=== PATIENT | male | born 1940 | race Caucasian/White ===

== ENCOUNTER 2024-11-27 15:42 | Emergency (ER) | payer OTHER, SELFPAY ==
[2024-11-27 15:47] VITALS: BP 163/87; PULSE 94; RESP 20; TEMP 36.2; O2SAT 97
--- NOTE | 2024-11-27 16:01 | ED.GENADUL_ITS ---
Discharge Plan Disposition Patient Disposition: Home Condition: Stable Discharge Details Clinical Impression: Cellulitis, Superficial fungal infection of skin Primary Care Provider: Caroline Dove ED Provider: Otis Caba Home Meds and New Rx's Prescriptions: New cephalexin 500 mg capsule 500 mg PO QID 14 Days Qty: 56 0RF No Action tramadol 50 MG tablet 50 mg PO TID gabapentin [Neurontin] 300 MG capsule 300 mg PO TID celecoxib [Celebrex] 100 mg capsule 100 mg PO DAILY Discharge Instructions Instructions: Cephalexin, Cellulitis (Skin Infection), Adult ED Additional Instructions: You were seen in the emergency department for your fungal infection to your buttocks that has likely exacerbated into bacterial infection as well. I have prescribed you cephalexin for antibiotics, you need to keep applying Lotrimin or Lamisil and or any other [id number]-[id number] antifungal cream to the area, please seek a referral to wound care from your primary care provider, take the antibiotics as directed, take Tylenol and ibuprofen for pain as needed, keep the area clean and dry. Return for any worsening despite treatment, large fluctuant swellings, fevers, weakness or nausea. Referrals: Caroline Dove [Primary Care Provider] - Discharge Data Discharge Date/Time-TO BE ENTERED AT DEPARTURE: 11/27/24 16:39 HPI General Date/Time Provider Initiated Documentation: 11/27/24 15:44 . HPI Narrative: 84 year-old male presents to ED today by POV/ambulating with a chief complaint of rash to buttock areas, with some fluctuant swellings that he has expressed some pus out of with onset over the past week or so. Quality described as painful rash, itchy, no radiation to constipation, large fluctuant swelling, red streaking outward from area, fevers, nausea, weakness. Severity is described as moderate. Palliating factors include has been trying antifungal creams. Provoking factors include nothing specific. Patient not anticoagulated. Related Data Home Medications ?Medication ?Instructions ?Recorded ?Confirmed gabapentin 300 mg capsule 300 mg PO TID 06/30/17 11/27/24 (Neurontin) tramadol 50 mg tablet 50 mg PO TID 06/30/17 11/27/24 celecoxib 100 mg capsule (Celebrex) 100 mg PO DAILY 11/27/24 11/27/24 cephalexin 500 mg capsule 500 mg PO QID cellulitis 14 days 11/27/24 #56 caps Previous Rx's ?Medication ?Instructions ?Recorded cephalexin 500 mg capsule 500 mg PO QID cellulitis 14 days 11/27/24 #56 caps Allergies Allergy/AdvReac Type Severity Reaction Status Date / Time No Known Allergies Allergy Verified 11/27/24 15:45 General Stated Complaint: RashLesion ELADIA: 4 Review of Systems All systems reviewed & are unremarkable except as noted in HPI and below Exam Narrative Exam Narrative: GENERAL APPEARANCE: Well-nourished, non-toxic, awake and alert, atraumatic, no acute distress. SKIN: Warm, pink, dry, diffuse erythema to the gluteal cleft and half of each buttock, macular, no fluctuant swellings or abscesses, no active drainage, some excoriated open abrasive areas, likely superficial fungal infection with imposed cellulitis due to excoriation by the patient HEAD: Normocephalic, atraumatic, normal hair distribution for gender/age. EYES: Normal conjunctiva, no exudates on lids/lashes. ENT: Nares patent, no circumoral cyanosis, no facial swelling NECK: Supple, trachea midline, painless cervical ROM. LUNGS/CHEST: Non-labored respirations, normal A/P diameter, symmetrical expansion, no chest wall deformity HEART (CV/PV): No peripheral edema, no JVD. ABDOMEN: Soft, non-distended, no guarding. MSK: Normal ROM, no swelling/deformity to bilateral UEs or LEs, moving all extremities without weakness, no cyanosis, spine midline without tenderness, normal curvature. NEURO: Mental Status AAOx4 - alert to person, place, time, events No facial droop, no forehead involvement. Motor: No focal weakness - strength 5/5 in bilateral UEs and LEs, proximal and distal, symmetric. Sensory: sensation intact to light touch globally. Gait normal: patient ambulated without ataxia into ED room. PSYCH: euthymic, cooperative, pleasant, appropriate speech Course Vital Signs Vital signs: Vital Signs Temperature 36.2 C L 11/27/24 15:47 Pulse 94 H 11/27/24 15:47 Respiratory Rate 20 11/27/24 15:47 Blood Pressure 163/87 H 11/27/24 15:47 Pulse Oximetry 97 11/27/24 15:47 Temperature 36.2 C L 11/27/24 15:47 Temperature Source Tympanic 11/27/24 15:47 Pulse 94 H 11/27/24 15:47 Respiratory Rate 20 11/27/24 15:47 Blood Pressure 163/87 H 11/27/24 15:47 Blood Pressure Position Supine 11/27/24 15:47 Pulse Oximetry 97 11/27/24 15:47 Oxygen Delivery Method Room Air 11/27/24 15:47 Oxygen Flow Rate 0 11/27/24 15:47 Medical Decision Making This dictation utilizes [id number]-[id number] dictation software and may contain unedited grammatical errors. 84 year-old male presents to ED today by POV/ambulating with a chief complaint of rash to buttock areas, with some fluctuant swellings that he has expressed some pus out of with onset over the past week or so. Quality described as painful rash, itchy, no radiation to constipation, large fluctuant swelling, red streaking outward from area, fevers, nausea, weakness. Severity is described as moderate. Palliating factors include has been trying antifungal creams. Provoking factors include nothing specific. Patients' medical history: No records. Family and social history: Lives at home with his , no recent travel or sick contacts. Pertinent exam findings / vital signs include large macular erythematous area with various excoriations, no fluctuant swellings or active drainage, no pilonidal cyst, appears to be not perirectal/anal abscess-consistent with cellulitis with underlying superficial fungal infection. Differential / pathologies of concern include superficial fungal infection, abscess, cellulitis, unlikely sepsis. Diagnostic studies of: -Discussed possibility of labs- patient prefers trial of ABX and will return with low threshold. Interventions of: -Rx for cephalexin. ED Course/Assessment/Plan: 84-year-old male presents with a large superficial fungal infection on his buttock with likely superimposed cellulitis from excoriation, no evidence for abscess on exam, is overall stable vitals and nontoxic and afebrile with no evidence of sepsis, I did discuss laboratory workup and possible imaging with the patient but he prefers a trial of antibiotics prior, I did prescribe him cephalexin, [facility] with seeking a referral to wound care for these issues, I did recommend he use barrier ointment and superficial fungal creams, strict return criteria for any worsening despite treatment especially with fever. Findings not consistent with perianal or rectal abscess, sepsis, pilonidal cyst. Disposition of Cellulitis, Superficial Fungal Infection. Patient verbalized understanding of the plan and return to ED criteria and engaged in shared decision making. Medical Records Medical records reviewed: Yes I reviewed the patient's medical records. Quality:SDOH Health Related Social Needs: No Data to Display PFSH All Active Problems (Updated 11/27/24 @ 16:02 by VASQUEZ Aragon) Superficial fungal infection of skin (Acute) Cellulitis (Acute) Social History Smoking/Tobacco Use Status: Never Smoking risk assessment performed?: Yes Alcohol Intake: never Drug use: Never Do you feel safe in your relationship?: Yes
[2024-11-27] MEDS: Cephalexin 500 MG CAP PO (16:29)
[2024-11-27] MEDS: Cephalexin 500 MG CAP, 2 CAPS/BTL PO (16:30)
[2024-11-27 16:31] VITALS: PULSE 87; RESP 16; O2SAT 96
== END 2024-11-27 16:39 | disposition home or self-care (01) ==
LOC: ER 16:43
PROVIDERS: Emergency Provider Physician Assistant; PCP Internal Medicine
DX: L03.317 Cellulitis of buttock (principal); B36.9 Superficial mycosis, unspecified
CPT/HCPCS: 99283

== ENCOUNTER 2025-02-06 22:56 | Observation (INO) | payer OTHER, SELFPAY ==
[2025-02-06] VITALS (11 sets, daily range): BP systolic 159–180; BP diastolic 70–79; PULSE 63–71; RESP 15–16; TEMP 35.9; O2SAT 94–98
--- NOTE | 2025-02-06 22:45 | RT.EKG_ITS ---
APPROVED REPORT Exam: Resting ECG Reason for Exam: stroke Patient Location: E HR:66 bpm ECG Measurements Heart Rate 66 AXIS MO 157 P 43 QRSd 99 QRS -16 QT 415 T 67 QTc 435 Conclusion Sinus rhythm...normal P axis, V-rate 60- 99, scattered non-specific t-wave flattening, no overt kraig gato injury ischemia present
--- NOTE | 2025-02-06 23:00 | DI.CT_ITS ---
Exam(s) CT BRAIN NECK CTA EXAM: CT BRAIN NECK CTA CLINICAL HISTORY: TIA symptoms. TECHNIQUE: Imaging Protocol: Axial CT angiography was performed with multi-slice acquisition and mu lti-planar and/or 3D reconstructions. CONTRAST MATERIAL: Intravenous: Omnipaque 350 contrast volume:70 mL COMPARISON: No exams were available for comparison FINDINGS: CT Head W/O and W: Ventricles and Extra axial spaces: Normal in size and morphology for the patient's age. Hemorrhage: None. Cerebral parenchyma: There are areas of decreased attenuation in the white matter most consistent wit h small vessel ischemic disease. No evidence of an acute territorial infarct. No mass effect is robin ntified. Old lacunar infarcts are seen in the left basal ganglia. Midline shift: None. Brainstem/Cerebellum: Normal. Calvarium: Normal. Visualized Paranasal sinuses/Mastoids: Clear. Soft Tissues: Unremarkable. Enhancement: Unremarkable. CTA Neck W: Common Carotid: Right: No dissection or occlusion. Atherosclerotic calcification is seen in the carotid bulb with l ess than 50 percent stenosis. Left: No dissection, occlusion or significant stenosis. External Carotid: Right: No occlusion or significant stenosis. Atherosclerotic calcification is seen at the origin wit h approximately 50 percent stenosis. Left: No occlusion or significant stenosis. Internal Carotid: Right: No dissection, occlusion or significant stenosis. There is atherosclerotic calcifications see n proximally with less than 50 percent stenosis. Left: No dissection, occlusion or significant stenosis. Atherosclerotic calcification is seen proxim ally with less than 50 percent stenosis. Vertebral Artery: Right: No dissection, occlusion or significant stenosis. Atherosclerotic calcification is seen at th e origin with less than 50 percent stenosis. Left: No dissection, occlusion or significant stenosis. Lung Apices: Clear. No infiltrates are seen. Bones: Within normal limits for the patient's age. Soft Tissues: Normal. Thyroid gland: There is a tiny 4 mm nodule in the right lobe of the thyroid gland. No follow-up is r ecommended. CTA Brain W: Internal Carotid Arteries: Normal. Anterior Cerebral Arteries: Right: No aneurysm, occlusion or significant stenosis. Left: No aneurysm, occlusion or significant stenosis. Middle Cerebral Arteries: Right: No aneurysm, occlusion or significant stenosis. Left: No aneurysm, occlusion or significant stenosis. Posterior Cerebral Arteries: Right: No aneurysm, occlusion or significant stenosis. The right posterior cerebral artery arises fr om the right posterior communicating artery which is normal variant. Left: No aneurysm, occlusion or significant stenosis. Vertebral Arteries: Right: No aneurysm, occlusion or significant stenosis. Left: No aneurysm, occlusion or significant stenosis. Basilar Artery: No aneurysm, occlusion or significant stenosis. IMPRESSION: 1. No large vessel occlusion or significant stenosis on the CT angiography of the head. 2. No acute intracranial process. 3. No occlusion or significant stenosis on the CT angiography of the neck. 4. The preliminary [facility] report was reviewed. RADIATION DOSE DELIVERED: 2,338.75mGy.cm Total DLP DATA REPOSITORY: All CT scans at this facility are submitted to the National Radiology Data Registry (NRDR) Dose Index Registry (DIR) with the [employer] (ACR). RADIATION OPTIMIZATION: All CT scans at this facility use at least one of these dose optimization te chniques: automated exposure control; mA and/or kV adjustment per patient size (includes targeted exa ms where dose is matched to clinical indication); or iterative reconstruction.
[2025-02-06 23:14] LABS: Abs Immature Grans 0.03 10^3/uL (0.0-0.06); Absolute Basophil Count 0.06 10^3/uL (0.0-0.2); Absolute Eosinophil Count 0.07 10^3/uL (0.0-0.7); Absolute Lymphocyte Count 1.44 10^3/uL (1.2-3.4); Absolute Monocyte Count 0.59 10^3/uL (0.1-0.8); Absolute Neutrophil Count 6.09 10^3/uL (1.2-6.7); Basophils % 0.7 %; Eosinophils % 0.8 %; HCT 43.9 % (40.0-50.0); HGB 14.3 g/dL (13.5-17.5); Immature Grans % 0.4 %; Lymphocytes % 17.4 %; MCHC 32.6 % (32.0-36.0); MCV 92 fL (80-95); MPV 9.7 fL (8.0-11.0); Monocytes % 7.1 %; Neutrophils % 73.6 %; Platelet Count 235 10^3/uL (130-400); RBC 4.76 10^6/uL (4.36-5.78); RDW 12.5 % (11.8-14.1); RDW-SD 42.5 fL; WBC 8.28 10^3/uL (4.4-10.8)
[2025-02-06] MEDS: Normal Saline - Diluent 50 ML VIAL IJ (23:20)
[2025-02-06] MEDS: Omnipaque 350 MG/ML 100 ML BTL 70 ML IJ (23:20)
[2025-02-06 23:32] LABS: ALT 23 U/L (16-63); AST 22 U/L (15-37); Albumin 3.6 g/dL (3.4-5.0); Alkaline Phosphatase 60 U/L (46-116); Anion Gap 6.3 mmol/L (3-11); BUN 23 mg/dL (7-18); Bilirubin, Total 0.8 mg/dL (0.2-1.0); CO2 28.7 mmol/L (21.0-32.0); CREATININE 1.4 mg/dL (0.70-1.30); Calcium 9.7 mg/dL (8.5-10.1); Chloride 104 mmol/L (98-107); Estimated GFR 50.18 (mL/min/1.73m2); Glucose 123 mg/dL (74-106); Magnesium 2.1 mg/dL (1.8-2.4); Sodium 139 mmol/L (136-145); Total Protein 7.3 g/dL (6.4-8.2); Troponin I 9 ng/L (<or=76)
[2025-02-07] VITALS (20 sets, daily range): BP systolic 123–176; BP diastolic 65–93; PULSE 61–75; RESP 13–20; TEMP 35.9–36.6; O2SAT 94–99
--- NOTE | 2025-02-07 | DI.MRI_ITS ---
Exam(s) MR BRAIN WO EXAM: MR BRAIN WO CLINICAL HISTORY: TIA TECHNIQUE: Multiplanar multisequence MRI of the brain was performed. COMPARISON: CT CT BRAIN NECK CTA from 02/06/2025 FINDINGS: The examination is limited due to patient motion artifact. VENTRICLES AND EXTRA AXIAL SPACES: Normal in size and morphology for the patient's age. MIDLINE SHIFT: None. CEREBRAL PARENCHYMA: No focus of restricted diffusion to suggest acute infarct. No space-occupying le cecile identified. There are several areas of hyperintense signal seen in the white matter on the FLAIR and T2 weighted images consistent with chronic microvascular ischemic disease. There is an old lacu kelvin infarct in the left basal ganglia. HEMORRHAGE: None. BRAINSTEM/CEREBELLUM: Normal. CALVARIUM: Normal. VISUALIZED PARANASAL SINUSES/MASTOIDS:Clear. [place]: Normal flow void. PITUITARY GLAND: Unremarkable. OTHER FINDINGS: None. IMPRESSION: 1. Exam limited by patient motion artifact. 2. No evidence of an acute infarct. 3. Age-related cerebral atrophy and chronic microvascular ischemic disease. 4. 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 DATA REPOSITORY:
--- NOTE | 2025-02-07 00:02 | DI.[facility]_ITS ---
PROCEDURE INFORMATION: Exam: CTA Head Without And With Contrast, Arteriography Exam date and time: 02/06/2025 11:27 PM Age: 84 years old Clinical indication: Stroke-like symptoms; Other: TIA symptoms TECHNIQUE: Imaging protocol: Computed tomographic angiography of the head without and with contrast. Exam focused on the arteries. 3D rendering (Not supervised by radiologist): MIP and/or 3D reconstructed images were created by the technologist. Contrast material: OMNIPAQUE 350; Contrast volume: 70 ml; Contrast route: INTRAVENOUS (IV); Other technique: STROKE PROTOCOL was implemented. COMPARISON: No relevant prior studies available. FINDINGS: ANTERIOR CIRCULATION: Right internal carotid artery: Intracranial segment is patent with no significant stenosis or occlusion. No aneurysm. Right middle cerebral artery: No occlusion or significant stenosis. No aneurysm. Right anterior cerebral artery: No occlusion or significant stenosis. No aneurysm. Left internal carotid artery: Intracranial segment is patent with no significant stenosis. No aneurysm. Left middle cerebral artery: No occlusion or significant stenosis. No aneurysm. Left anterior cerebral artery: No occlusion or significant stenosis. No aneurysm. POSTERIOR CIRCULATION: Right vertebral artery: No occlusion or significant stenosis. No aneurysm. Left vertebral artery: No occlusion or significant stenosis. No aneurysm. Basilar artery: No occlusion or significant stenosis. No aneurysm. Right posterior cerebral artery: No occlusion or significant stenosis. No aneurysm. Left posterior cerebral artery: No occlusion or significant stenosis. No aneurysm. HEAD: Brain: Small chronic left basal ganglia lacunar infarct. Mild nonspecific hypodensities of the periventricular and deep subcortical white matter, most likely secondary to chronic microangiopathic ischemic change. No intracranial hemorrhage or extra-axial fluid collection. No evidence of mass effect or midline shift. Tanner-white matter differentiation is normal. Cerebral ventricles: Mild prominence of the ventricles and sulci, most likely attributed to parenchymal volume loss. Bones: Unremarkable. No acute fracture. Paranasal sinuses: Visualized sinuses are normal. No fluid levels. Mastoid air cells: Visualized mastoids are normal. No mastoid effusion. Soft tissues: Unremarkable. IMPRESSION: 1. No intracranial arterial occlusion or significant stenosis. 2. No acute findings on non-contrast Head CT images. ASPECTS score 10. 3. Chronic findings, as above. PROCEDURE INFORMATION: Exam: CTA Neck Without And With Contrast Exam date and time: 02/06/2025 11:27 PM Age: 84 years old Clinical indication: Stroke-like symptoms; Other: TIA symptoms TECHNIQUE: Imaging protocol: Computed tomographic angiography of the neck without and with contrast. Exam focused on the cervical segments of the vasculature. 3D rendering (Not supervised by radiologist): MIP and/or 3D reconstructed images were created by the technologist. Contrast material: OMNIPAQUE 350; Contrast volume: 70 ml; Contrast route: INTRAVENOUS (IV); COMPARISON: No relevant prior studies available. FINDINGS: Right common carotid artery: No significant stenosis. No dissection or occlusion. Right internal carotid artery: Atherosclerotic plaques involving the proximal extracranial right internal carotid artery without evidence of hemodynamically significant stenosis (0% stenosis by NASCET criteria). Right external carotid artery: No occlusion or significant stenosis. Left common carotid artery: No significant stenosis. No dissection or occlusion. Left internal carotid artery: Atherosclerotic plaques within the proximal extracranial left internal carotid artery cause approximately 30 % stenosis by NASCET criteria. Remaining portions of the extracranial left ICA are patent. Left external carotid artery: No occlusion or significant stenosis. Right vertebral artery: No significant stenosis. No dissection or occlusion. Left vertebral artery: No significant stenosis. No dissection or occlusion. Soft tissues: Unremarkable. Bones/joints: No acute fracture. IMPRESSION: No occlusion or significant stenosis in the arteries of the neck. REFERENCES: NASCET CRITERIA. The degree of stenosis in the cervical segment of the internal carotid artery is based on NASCET criteria. Normal is no stenosis. Mild is less than 50% stenosis. Moderate is 50-69% stenosis. Severe is 70% to 99% stenosis. Total occlusion is no detectable patent lumen. Dictated and Authenticated by: Max Simpson MD. Orderin Kaela Haskins MD
[2025-02-07 00:25] LABS: Troponin I 8 ng/L (<or=76)
--- NOTE | 2025-02-07 00:59 | W.ED.GENAD ---
Discharge Plan Disposition Patient Disposition: Admit to [facility] Condition: Stable Discharge Details Clinical Impression: TIA (transient ischemic attack) Primary Care Provider: Caroline Dove ED Provider: Jozef Sherwood Home Meds and New Rx's Prescriptions: No Action tramadol 50 MG tablet 50 mg PO TID gabapentin [Neurontin] 300 MG capsule 300 mg PO TID tamsulosin [Flomax] 0.4 mg capsule 0.4 mg PO DAILY celecoxib [Celebrex] 100 mg capsule 100 mg PO DAILY HPI General Date/Time Provider Initiated Documentation: 02/06/25 23:04. HPI Narrative: The patient is an 84-year-old male, with a past medical history significant for chronic pain and urinary retention, who presents to the emergency department this evening complaining of possible stroke-like symptoms that began approximately 4 hours prior to arrival by ambulance, and resolved within about 20 minutes of the onset. The patient states that he had some slurred speech and some difficulty moving the right side of his face. He also reported that he had some mild numbness in his distal right forearm. The patient states that the symptoms lasted about 20 minutes and then spontaneously resolved on their own. He called an ambulance at his 's urging several hours later. The patient denies having any headache, chest pain, shortness of breath, or recent illnesses. The patient denies any fevers or chills. Related Data Home Medications ?Medication ?Instructions ?Recorded ?Confirmed gabapentin 300 mg capsule 300 mg PO TID 06/30/17 02/06/25 (Neurontin) tramadol 50 mg tablet 50 mg PO TID 06/30/17 02/06/25 celecoxib 100 mg capsule (Celebrex) 100 mg PO DAILY 11/27/24 02/06/25 tamsulosin 0.4 mg capsule (Flomax) 0.4 mg PO DAILY 02/06/25 02/06/25 Allergies Allergy/AdvReac Type Severity Reaction Status Date / Time No Known Allergies Allergy Verified 02/06/25 23:00 General Stated Complaint: CVA/TIA ELADIA: 2 Exam Const General: cooperative, comfortable and no acute distress Orientation: alert, awake and oriented x3 HENMT Head: normocephalic and atraumatic Ears: external ears normal General nose exam: external nose normal and no nasal discharge noted Face and sinus: sinuses nontender and face symmetric Teeth and gingiva: edentulous Eyes General: appearance normal, both eyes and all related structures Visual Erickson: normal visual erickson by confrontation Alignment and Position: alignment normal Conjunctivae: conjunctivae normal Cornea: corneas normal Pupils: PERRL EOM: EOM intact bilaterally Neck Neck: normal visual inspection and full ROM Resp Effort & Inspection: normal respiratory effort and able to speak in complete sentences Auscultation: clear to auscultation bilaterally Cardio Rate: regular rate Rhythm: regular rhythm Heart Sounds: S1 normal and S2 normal GI Inspection: normal to inspection Palpation: soft Auscultation: normal bowel sounds Skin General skin exam: no rashes or lesions noted, elasticity normal and turgor normal Neuro General: patient alert, patient awake, patient oriented x3, moves all extremities, normal light touch, pain and propioception, no focal motor deficits and CN's II-XI intact bilaterally Cognition: normal cognition Speech: speech normal Motor: muscle tone normal throughout, strength 5/5 throughout and no pronator drift Extrem General: normal to inspection, full ROM, no clubbing, no cyanosis and no edema Psych Appearance: grossly normal Mental Status: mental status grossly normal Speech and Movement: speech and movement normal Course Vital Signs Vital signs: Vital Signs Temperature 35.9 C L 02/06/25 22:55 Pulse 71 02/06/25 22:55 Respiratory Rate 15 02/06/25 22:55 Blood Pressure 163/70 H 02/06/25 22:55 Temperature 35.9 C L 02/06/25 22:55 Pulse 67 02/07/25 00:30 Pulse 68 02/07/25 00:30 Respiratory Rate 19 02/07/25 00:30 Respiratory Effort Normal, Non-Labored 02/06/25 23:10 Respiratory Depth Normal 02/06/25 23:10 Respiratory Pattern Normal 02/06/25 23:10 Blood Pressure 143/77 H 02/07/25 00:21 Blood Pressure Mean 100 02/07/25 00:21 Pulse Oximetry 97 02/07/25 00:30 Oxygen Delivery Method Room Air 02/06/25 22:55 Oxygen Flow Rate 0 02/06/25 22:55 Pain Level 0 02/06/25 22:55 Lab/Test Results Lab/Test Results: Laboratory Tests Range/Units 02/06/25 02/07/25 23:05 00:02 WBC (4.4-10.8) 10^3/uL 8.28 RBC (4.36-5.78) 10^6/uL 4.76 Hgb (13.5-17.5) g/dL 14.3 Hct (40.0-50.0) % 43.9 MCV (80-95) fL 92 MCH (27.0-33.0) pg 30.0 MCHC (32.0-36.0) % 32.6 RDW (11.8-14.1) % 12.5 Plt Count (130-400) 10^3/uL 235 MPV (8.0-11.0) fL 9.7 Immature Gran % % 0.4 Neutrophils % % 73.6 Lymphocytes % % 17.4 Monocytes % % 7.1 Eosinophils % % 0.8 Basophils % % 0.7 Nucleated RBC % (0.0-0.3) % 0.0 Absolute Neutrophils (1.2-6.7) 10^3/uL 6.09 Absolute Lymphocytes (1.2-3.4) 10^3/uL 1.44 Absolute Monocytes (0.1-0.8) 10^3/uL 0.59 Absolute Eosinophils (0.0-0.7) 10^3/uL 0.07 Absolute Basophils (0.0-0.2) 10^3/uL 0.06 Sodium (136-145) mmol/L 139 Potassium (3.5-5.1) mmol/L 4.0 Chloride (98-107) mmol/L 104 Carbon Dioxide (21.0-32.0) mmol/L 28.7 Anion Gap (3-11) mmol/L 6.3 BUN (7-18) mg/dL 23 H Creatinine (0.70-1.30) mg/dL 1.4 H Est GFR (CKD-EPI 2020) (mL/min/1.73m2) 50.18 Glucose (74-106) mg/dL 123 H Calcium (8.5-10.1) mg/dL 9.7 Magnesium (1.8-2.4) mg/dL 2.1 Total Bilirubin (0.2-1.0) mg/dL 0.8 AST (15-37) U/L 22 ALT (16-63) U/L 23 Alkaline Phosphatase (46-116) U/L 60 Troponin I (<or=76) ng/L 9 8 Total Protein (6.4-8.2) g/dL 7.3 Albumin (3.4-5.0) g/dL 3.6 Medical Decision Making Medical Records Medical records narrative: The patient was seen and examined. He is in no distress and has normal vital signs here in the emergency room. The patient has no ongoing symptoms and has a fully normal neurologic exam. NIH stroke scale is 0. The patient has an EKG which is normal sinus rhythm without any significant repolarization abnormalities. The ventricular response rate is [address] and CTA of the head and neck are negative for any acute findings. The patient had a fully normal laboratory workup. I went back in to discuss admission to the hospitalist service for 24-hour observation to ensure that there is no progression to stroke given that the patient has some concerns for TIA symptoms. Initially the patient told me that he was unwilling to stay, and is now having difficulty deciding. We did have an informed discussion regarding the consequences of going home and not having an immediate medical intervention should he develop stroke symptoms. Ultimately, the patient and his discussed it and he has elected to stay in the hospital for neurologic observation. I discussed the case with Dr. Quiros from the hospitalist service for admission. Quality:SDOH Health Related Social Needs: No Data to Display PFSH All Active Problems (Updated 02/07/25 @ 01:34 by Jeff Quiros MD) Urinary retention (Acute) TIA (transient ischemic attack) (Acute) Social History Smoking/Tobacco Use Status: Never Smoking risk assessment performed?: Yes Alcohol Intake: never Drug use: Never Do you feel safe in your relationship?: Yes
--- NOTE | 2025-02-07 01:26 | W.PM.HP.N ---
Date of service: 02/07/25 Time of Service: 01:26 Assessment and Plan Assessment and plan (1) TIA (transient ischemic attack): Status: Acute Assessment and plan: MRI ordered PT consult ordered echo ordered symptoms have completely resolved (2) Urinary retention: Status: Acute Assessment and plan: self cath as needed, cw flomax History of Present Illness History of Present Illness Chief Complaint: slurred speech Narrative: This is an 84-year-old gentleman who presents to the ED with feelings of slurred speech which had resolved by the time he presented to the ED. While he was in the ED a workup was initiated including a CT scan of his head which did not show any acute pathology. Patient also had an EKG done which was reviewed and was essentially benign. Laboratory work reviewed and showed an elevated BUN/creatinine ratio at 23-1.4 respectively as well as mild hyperglycemia. As mentioned above his symptoms had completely resolved by the time I interviewed him. Patient does endorse self cathing as well as significant insomnia. The patient is an 84-year-old male, with a past medical history significant for chronic pain and urinary retention, who presents to the emergency department this evening complaining of possible stroke-like symptoms that began approximately 4 hours prior to arrival by ambulance, and resolved within about 20 minutes of the onset. The patient states that he had some slurred speech and some difficulty moving the right side of his face. He also reported that he had some mild numbness in his distal right forearm. The patient states that the symptoms lasted about 20 minutes and then spontaneously resolved on their own. He called an ambulance at his 's urging several hours later. The patient denies having any headache, chest pain, shortness of breath, or recent illnesses. The patient denies any fevers or chills. Review of Systems All systems reviewed & are unremarkable except as noted in HPI and below PFSH All Active Problems (Updated 02/07/25 @ 01:34 by Jeff Quiros MD) Urinary retention (Acute) TIA (transient ischemic attack) (Acute) Social History Smoking/Tobacco Use Status: Never Smoking risk assessment performed?: Yes Alcohol Intake: never Drug use: Never Do you feel safe in your relationship?: Yes Meds Allergies and Home Medications Allergies Allergy/AdvReac Type Severity Reaction Status Date / Time No Known Allergies Allergy Verified 02/06/25 23:00 Home Medications ?Medication ?Instructions ?Recorded ?Confirmed ?Type gabapentin 300 mg capsule 300 mg PO TID 06/30/17 02/06/25 History (Neurontin) tramadol 50 mg tablet 50 mg PO TID 06/30/17 02/06/25 History celecoxib 100 mg capsule (Celebrex) 100 mg PO DAILY 11/27/24 02/06/25 History tamsulosin 0.4 mg capsule (Flomax) 0.4 mg PO DAILY 02/06/25 02/06/25 History Exam Narrative Exam Narrative: HEENT: NCAT MMM EOMI PERRLA NECK: NO LAD NO JVD CV: RRR NO MRG LUNGS: CTAB NO AMU ABD: SNTNDBSA EXT: NO CCE BILAT NEURO: CN 2-12 INTACT TESTED, REFLEXES INTACT TESTED SYMMETRIC SMILE, SYMMETRIC EYE BROW RAISE 5/5 UE AND LE STREGHT BILAT CON: 84 Y/O MAN IN NO DISTRESS APPEARS STATED AGE Results Labs 02/06/25 23:05 02/06/25 23:05 Labs: Laboratory Results - last 24 hr 02/06/25 02/07/25 23:05 00:02 WBC 8.28 RBC 4.76 Hgb 14.3 Hct 43.9 MCV 92 MCH 30.0 MCHC 32.6 RDW 12.5 Plt Count 235 MPV 9.7 Immature Gran % 0.4 Neutrophils % 73.6 Lymphocytes % 17.4 Monocytes % 7.1 Eosinophils % 0.8 Basophils % 0.7 Nucleated RBC % 0.0 Absolute Neutrophils 6.09 Absolute Lymphocytes 1.44 Absolute Monocytes 0.59 Absolute Eosinophils 0.07 Absolute Basophils 0.06 Sodium 139 Potassium 4.0 Chloride 104 Carbon Dioxide 28.7 Anion Gap 6.3 BUN 23 H Creatinine 1.4 H Est GFR (CKD-EPI 2020) 50.18 Glucose 123 H Calcium 9.7 Magnesium 2.1 Total Bilirubin 0.8 AST 22 ALT 23 Alkaline Phosphatase 60 Troponin I 9 8 Total Protein 7.3 Albumin 3.6 Last Vital Signs Temp 35.9 C L 02/06/25 22:55 Pulse 67 02/07/25 00:30 Resp 19 02/07/25 00:30 BP 143/77 H 02/07/25 00:21 Pulse Ox 97 02/07/25 00:30 Time Spent Time spent with Patient: <40 minutes Time was spent: preparing to see the patient(eg.review tests), obtaining and/or reviewing separately otained hiistory, ordering medications,tests, procedures, referring, communicating with other health insurance healthcare representative, indepentently interpreting results, counseling the patient and care coordination
[2025-02-07] MEDS: Enoxaparin 40 MG/0.4 ML SYR SC (02:09)
[2025-02-07] MEDS: Zolpidem 5 MG TAB PO (03:11)
[2025-02-07] MEDS: Acetaminophen 325 MG TAB PO (03:11)
[2025-02-07] MEDS: traMADol 50 MG TAB PO ×2 (05:48→08:54)
[2025-02-07] MEDS: Gabapentin 300 MG CAP PO ×2 (08:54→14:44)
[2025-02-07] MEDS: Tamsulosin 0.4 MG CAPCR PO (08:54)
[2025-02-07] MEDS: Celecoxib 100 MG CAP PO (08:54)
[2025-02-07] MEDS: LORazepam 2 MG/ML VIAL 0.5 MG IVP (08:54)
--- NOTE | 2025-02-07 09:57 | PDOC.CMIN ---
Date of service: 02/07/25 Time of Service: 09:57 Care Management Initial Assmt Functional Status/Living Situation Patient Presentation: Cb was awake and sitting up in bed, visiting with his when CM met with him. He is pleasant and easily engages in conversation. Cb lives in [place] with his Smita and their 4 adult children; all live locally and are supportive. Cb no longer drives, but is otherwise independent with baseline, he is retired from the [employer]. He is [facility]% [facility] connected and feels very well supported in the community. [facility], but if he needs something acutely it can be sent to [facility] in [place]. Town of Residence: [place] Resides with: Spouse (Chanell) Significant Other/Family: Local Natural Supports: 3 sons, 1 daughter; all supportive and live locally Employment Status: Retired ([employer], 100% [facility] connected (per pt)) Instrumental Activities of Daily Living (ADLs): Independent Medications Medication Management: No Issues/Barriers identified Physical Functioning/Mobility Assistive Device: Walker/Cane PRN Advance Directives Advance Directives: Do you have an Advance Directive: N 06/30/17 01:[address] [facility]: N 06/30/17 00:08 Date Asked 11/27/24 11/27/24 15:45 AD Date Reviewed COLST On File at [facility] COLST Date Scanned Code Status Resuscitation Status Full Code Portal Pt does not currently have a portal and education provided: Yes Insurance Coverage/Financial Issues Insurance: [place] - [id number] Financial Issues: None identified Care Team Visit Care Team Role Provider Type Caroline Dove Primary Care Provider NON-[facility] STAFF PHYSICIAN Chica Mckinney Other Providers GAS STATION CASHIER Patience Laws Other Providers GAS STATION CASHIER Liset Shipman Other Providers GAS STATION CASHIER InPatient [facility]lin Other Providers OTHER Vikki Fox RN Other Providers GAS STATION CASHIER Jina Quiros Other Providers GAS STATION CASHIER Jozef Sherwood MD Emergency Provider [facility] STAFF PHYSICIAN Jeff Quiros MD Admit Provider [facility] STAFF PHYSICIAN Attending Provider Discharge Potential Discharge Needs: PCP F/U Appt ( [facility]sp[facility], not Caroline Dove. ) Anticipated Barriers to Discharge: None Identified Patient/Family Education Needs: Review discharge instructions, discuss Ask Me Three Transportation: Other (Dependent on mobility at the time of dispo) Plan: Awaiting PT recommendation, discharge plan to follow. Pt is agreeable to New [facility] services if approved by the [place]. Pt will follow up with [place] providers and discharge plan of care as directed. CM will follow. Social Determinants of Health Screening Will the Patient Participate in the Screening?: Declined to provide Do you worry about having a steady place to live?: choose not to answer PFSH All Active Problems (Updated 02/07/25 @ 01:34 by Jeff Quiros MD) Urinary retention (Acute) TIA (transient ischemic attack) (Acute) Social History Smoking/Tobacco Use Status: Never Smoking risk assessment performed?: Yes Alcohol Intake: never Drug use: Never Housing: house Do you feel safe in your relationship?: Yes
--- NOTE | 2025-02-07 09:58 | PT.INIE ---
PT Notes Visit Reasons: TIA (cardiology) Physical Therapy Inpatient Initial Evaluation Date: 02/07/2025 Referring Doctor: Jeff Quiros MD PT Orders: PT CONSULT: Eval/Treat. Precautions: Fall. Standard. Activity as tolerated. Patient Profile/Admitting Diagnosis: 84-year-old male who presented to the ED earlier today with chief complaints of slurred speech, difficulty moving R side of face and numbness in distal R forearm. patient is admitted for CVA work up now with working diagnoses of TIA and urinary retention. PMHX: All Active Problems (Updated 02/07/25 @ 01:34 by Jeff Quiros MD) Urinary retention (Acute) TIA (transient ischemic attack) (Acute) Social History/Home Situation: Lives with in a private home with two steps to enter with rails on B sides. Modified independent with single point cane. Equipment Owned/DME: SPC, FWW Subjective: Anxious about his medication which he did not get in time earlier today. Wanting to go home but is agreeable to assessment of strength and mobility while awaiting testing downstairs. Denied headache, chest pain, and lightheadedness. Did say that he has had some balance issues in the past. Objective: General Observation: Anxious about wanting to go home. Mental Status: Alert and oriented as to person, place, time, and purpose. Able to pay attention, focus, and respond appropriately. Pain: None reported Vital Signs: Closely monitored by nursing staff ROM: Right Upper Extremity: Shoulder Flexion WFL. Shoulder abduction WFL. Elbow flexion WFL. Wrist flexion WFL. Functional opening and closing of hand WFL. Left Upper Extremity: Shoulder Flexion WFL. Shoulder abduction WFL. Elbow flexion WFL. Wrist flexion WFL. Functional opening and closing of hand WFL. Right Lower Extremity: Hip flexion WFL. Hip abduction WFL. Knee flexion WFL. Ankle dorsiflexion WFL. Ankle plantarflexion WFL. Left Lower Extremity: Hip flexion WFL. Hip abduction WFL. Knee flexion WFL. Ankle dorsiflexion WFL. Ankle plantarflexion WFL. Strength: Right Upper Extremity: Shoulder flexors 4/5. Shoulder abductors 4/5. Elbow flexors 5/5. Elbow extensors 4/5. Metal Precision Machine Assembler strong. Left Upper Extremity: Shoulder flexors 4/5. Shoulder abductors 4/5. Elbow flexors 5/5. Elbow extensors 4/5. Metal Precision Machine Assembler strong. Right Lower Extremity: Hip flexors 4/5. Hip abductors 4/5. Knee flexors 4/5. Knee extensors 4-/5. Ankle dorsiflexors 4-/5. Ankle plantarflexors 4-/5. Left Lower Extremity: Hip flexors 4/5. Hip abductors 4/5. Knee flexors 4/5. Knee extensors 4-/5. Ankle dorsiflexors 4/5. Ankle plantarflexors 4-/5. Bed Mobility/Transfers: Minimal cueing provided for use of B hands as needed for support, movement sequence, AD management, and posture to reduce fall risk and minimize pain report Rolling independent Supine to sit indpendent Sit to supine indpendent Sit to stand stand by assist with FWW Stand to sit stand by assist with FWW Bed to reclining chair contact guard assist with FWW Gait: Facilitated safe and correct performance of short distance ambulation using the front-wheeled walker with minimal assist covering about 40 feet before he got tired and wanted to sit down onto wheelchair. He then rolled the wheelchair back into the room, feeling fatigued and wanting to rest. Mild imbalance and incoordination noted that he said has been chronic. Balance: Static Sitting: Normal Dynamic Sitting: Normal Static Standing: Fair Dynamic Standing: Fair Special Tests: Mobility Limitations Standardized Measure [facility] 6 clicks Basic Mobility Inpatient Short Form: Raw Score: 20 CMS Score: 36% deficit 4-Stage balance Test: Feet together 10 seconnds Semi-tandem deferred Full tandem deferred One-legged stance deferred Informed Consent/Education: Patient was instructed in purpose of PT consult and plan of care. Agreeable to proceed with established PT POC to achieve personal goals. Assessment: Strength symmetric except for decreased dorsiflexion on the R. Patient anxious about going home. Patient presents with clinical signs and symptoms consistent with current/admitting diagnoses that have resulted to mobility limitations, gait instability, generalized weakness, and overall ADL decline as demonstrated by the following impairment level findings: 1. Decreased strength to B UE/LE major muscle groups 2. Impaired sitting/standing balance 3. Impaired activity tolerance 5. Fatigue Impairments are contributing to the following functional limitations: 1. Decline in bed mobility skills 2. Decline in transfer skills 3. Difficulty with ambulation without assistive device 4. Increased completion time for mobility ADL performance 5. Increased risk for falls 6. Difficulty with managing steps alone safely Patient is assessed as a 70666 moderate complexity based on the following: History: 84-year-old male with past medical history as indicated above Examination: Demonstrable impairment in strength, balance, and mobility level with underlying impairments and functional limitations as exhibited above as well as deficit score of 36% utilizing the [facility] Mobility Inpatient Short Form Presentation: Evolving Decision Makin moderate complexity Goals: Goals X1 week 1. Supine-Sit independent 2. Sit-Supine independent 3. Sit-Stand independent 4. Stand-Sit independent with SPC 5. Bed-Chair independent with SPC 6. Chair-Bed independent with SPC 7. Independent gait on level surface with use of SPC feet for at least feet without report of pain nor dyspnea 8. Independent stair negotiation while holding onto B rails for at least 3 steps without report of pain nor dyspnea 9. Independent with home exercise program 10. Good static and dynamic standing balance/tolerance Plan of Care/Treatment Plan: 1-2x/day, 7 days/week x 1 week. Plan of care has been reviewed with the DOUBLE SPINDLE SHAPER OPERATOR providing the service under Physical Therapy direction. Initiate Physical Therapy intervention for pain management as needed, strengthening, bed mobility, transfers, gait, stairs, balance training, and use of assistive device. DISCHARGE RECOMMENDATIONS: [] Home with no services [] [X] Home with services. Patient will benefit from home health PT services in order to progress mobility level using least restrictive assistive ambulatory device, assess home safety, identify additional equipment needs, and establish a functional maintenance program that will increase ability of patient to remain at home. [] Home with outpatient PT [] [] SNF for continued rehabilitation [] [] Head Packager Care [] [] SNF versus LTC based on ability to participate and progress [] TREATMENT CODE/TIME: 27471 x 22 minutes for 1 unit ( 9:58-10:25). Thank you for the opportunity to participate in the care of this patient. Kimi Nuñez PT, DPT, CLT [facility] [place], [place]
--- NOTE | 2025-02-07 10:30 | DI.US_ITS ---
APPROVED REPORT EXAM: Comprehensive 2D, Doppler, and color-flow Echocardiogram Patient Location: In-Patient Room/Bed: 225 Test Rider: Saw Aparicio RDCS (AE) Indications: TIA Other Information Study Quality: Adequate. Technically limited study due to body habitus. Conclusion Normal left ventricular wall thickness and chamber size. Ejection fraction is 60%. Wall motion is n ormal Normal right ventricular size and function Both atria are normal in size The aortic valve is mildly sclerotic and trileaflet Mild mitral and tricuspid regurgitation Estimated right ventricular systolic pressure is 30 mmHg Wall motion Left Ventricle The left ventricle is normal size. The left ventricular systolic function is normal. The left ventric ular ejection fraction is within the normal range. There is normal left ventricular wall thickness. T here is normal LV segmental wall motion. There is no ventricular septal defect visualized. LVEF is 60 %. Right Ventricle The right ventricle is normal size. The right ventricular systolic function is normal. Atria The left atrium size is normal. The right atrium size is normal. The interatrial septum is intact wit h no evidence for an atrial septal defect. Aortic Valve The aortic valve is mildly sclerotic. Aortic valve is trileaflet. There is no aortic valvular stenosi s. No aortic regurgitation is present. Mitral Valve The mitral valve is normal in structure. No evidence of mitral valve stenosis. Mild mitral regurgitat ion. Tricuspid Valve The tricuspid valve is normal in structure. There is no tricuspid valve stenosis. Mild tricuspid regu rgitation. The RVSP is 30 mmHg. Pulmonic Valve The pulmonary valve is normal in structure. There is no pulmonic valvular stenosis. Mild pulmonic reg urgitation. Great Vessels The aortic root is normal in size. Ascending aorta is not well visualized. Aortic arch is normal in c aliber. IVC is normal in size and collapses >50% with inspiration. Pericardium There is no pericardial effusion. 2D Dimensions IVSD d PLAX 1.06 cm M: 0.6-1.2 Ao Root d 2.85 cm M: 3.1 - 3.7 LVPW d PLAX 1.05 cm M: 0.6 - 1.2 LVID d PLAX 5.00 cm M: 4.2 - 5.8 LVDs 3.41 cm M: 2.5 - 4.0 LV EF Teichholz 59.5 % FS 31.76 % LV EDV (Teich) 118.0 mL LV ESV (Teich) 47.7 mL Stroke Vol Index (Teich) 33.15 M-Mode TAPSE 2.41 cm (M/F) >1.7 Auto EF LV EDV A4C 79.2 mL LV EDV A2C 87.5 mL LV EDV BP 84.9 mL LV ESV A4C 31.3 mL LV ESV A2C 37.1 mL LV ESV BP 34.8 mL LVEF(%) A4C 60.5 % LVEF(%) A2C 57.7 % LVEF(%) BP 59.1 % LV SV A4C 48.0 ml LV SV A2C 50.5 ml LV SV BP 50.2 ml LV CO A4C 3.7 L/min LV CO A2C 3.6 L/min LV CO BP 3.6 L/min HR A4C 76.57 BPM HR A2C 70.87 BPM LV EDV Index (BP) LA Volume LA Length A4C 4.0 cm LA Length A2C 4.6 cm LA Area A4C s 10.22 cm2 LA Area A2C s 12.96 cm2 LA Vol A4C A-L 21.95 mL LA Vol A2C A-L 30.89 mL LA Vol Biplane A-L 27.8 mL LA Vol/BSA A4C A-L LA Vol/BSA A2C A-L LA Vol/BSA BP A-L 13.1 mL/m2 LA Vol A4C MOD 21.2 mL LA Vol A2C MOD 28.8 mL LA Vol BP MOD 26.2 mL RA Volume RA Area A4C 8.9 cm2 RA ESV A4C (A-L) 15.1mL RA Vol/BSA A4C A-L RA Length A4C 4.4 cm RA ESV A4C (MOD) 14.3mL LV Diastology MV E' medial 0.045 (>0.07 m/s) MV E Vmax 0.39 (0.4-1.3 m/s) MV E/E' MED 8.61 (<14) MV A Vmax 0.80 (0.4-1.3 m/s) MV E' lateral 0.047 (>0.1 m/s) E/A Ratio 0.5 MV E/E' LAT 8.22 (<14) MV E' Average 0.046 m/s MV E/E'(average) 8.41 Aortic Valve AoV Vmax 1.43 m/s LVOT Vmax 0.63 m/s AoV Peak Grad 8.2 mmHg LVOT Peak Grad 1.6 mmHg AoV Area (Vmax) 1.43 cm2 LVOT VTI 0.134 m AoV VTI 0.229 m LVOT Mean Grad 1.0 mmHg AoV Mean Hal. 0.84 m/s LVOT SV 43.69 mL AoV Mean Grad 3.4 mmHg LVOT Diam s 2.00 cm AoV Area (VTI) 1.91 cm2 AV Regurg Peak Gr. 8.23 mmHg Velocity Ratio 0.44 Mitral Valve MV DT 162 (160-240 msec) Tricuspid Valve RA Pressure 3.00 mmHg TR Vmax 2.59 m/s TR Peak Grad 26.8 mmHg RVSP (TR) 29.9 mmHg
[2025-02-07] MEDS: traMADol 50 MG TAB 100 MG PO (14:44)
[2025-02-07] MEDS: Aspirin 325 MG TAB PO (15:31)
[2025-02-07] MEDS: LORazepam 0.5 MG TAB PO (15:31)
[2025-02-07] MEDS: Clopidogrel 300 MG TAB PO (15:31)
[2025-02-07] MEDS: Atorvastatin 40 MG TAB PO (15:31)
--- NOTE | 2025-02-07 15:54 | PDOC.HHF2F_ITS ---
Home Health Referral Home Health Orders Clinical synopsis of why skilled professionals are needed: 84 yo M with history of anklosing spondylitis with chronic pain on tramadol, gabapentin, and celecoxib as well as BPH who presented after an episode of slurring of speech and right facial droop lasting 20 minutes and was admitted for a TIA evaluation. His neurologic examination was normal at the time of presentation to the emergency room. CTA head/neck was negative. He was observed and did not have a recurrence of his symptoms. Echocardiogram did not show cardiac abnormalities or clots. 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 He was given aspirin 325mg and clopidogrel 300mg and atorvastatin 40mg after discussion of the evidence of cerebrovascular disease and new TIA. He was discharged with 21 days of DAPT for high risk TIA with ABCD2 score of 5. Risk of ZARATE-2 inhibitor also considered, but this is likely minimal given the low dose. He did have a lot of anxiety and required 0.5mg of lorazepam for his MRI. He requested discharge, and was sent home with 30 day surveillance monitor to follow up with his PCP at the [facility]. He was upset in the morning because he was initially only given 50mg of tramadol instead of 100mg, but he was given his home dose after this was clarified. We did discuss the risk of a relatively high dose of tramadol at his age. His admission QTc was reassuring at 435. He did not have evidence of seizure activity. He was evaluated by PT who recommended home health PT, nursing also recommended for education/monitoring of cerebrovascular disease. PCP follow up: Follow up appointment within 1-2 weeks Follow lipids levels and tolarance of statin therapy Follow blood pressure with goal <130/80 given cerebrovascular disease. Follow up 30 day surveillance monitor Follow risk benefit of his pain medications Medical diagnosis necessitation home health referral: TIA, h/o CVA Registered Nurse: Check all that apply Instruct on new or changed medication(s)/assess compliance: Ordered Assess for exacerbation of medical condition, instruct patient/caregivers on signs and symptoms to report for early detection: Ordered Physical Therapist: Check all that apply Increase strength & endurance for safe mobility at home: Ordered To design/establish home maintenance program: Ordered Home safety evaluation and teaching/gait training including stair management (if applicable): Ordered Home Bound Status Requires the aid of supportive device (check all that apply): Cane and Walker Describe why leaving home would require a considerable and taxing effort: Requires frequent rest periods and Safety Concerns: describe (fall risk) Encounter Date and Reason: I certify that a FTF encounter for this patient was performed on February 07, 2025 and that such encounter was related to the primary reason the patient requires home health services. The encounter was conducted in the following manner: * By me as the certifying physician, MOTTLER OPERATOR, PA or * By an inpatient physician, MOTTLER OPERATOR or PA during an inpatient stay who communicated findings to me, Certification And Authentication I certify that I composed the above information based on my clinical judgment relating to this patient's medical condition and, if applicable, clinical findings communicated to me by the NPP or inpatient physician who performed the FTF encounter. Name of Provider that will be monitoring home health services: Rosi Alcala
--- NOTE | 2025-02-07 15:56 | W.PM.DS.N ---
Date of service: 02/07/25 Time of Service: 15:57 DS: Diagnosis Discharge Diagnosis (1) TIA (transient ischemic attack): Status: Acute (2) Urinary retention: Status: Acute Discharge Plan Disposition Patient Disposition: Home Condition: Fair Discharge Details Reason For Visit: TIA Admit Date/Time: 02/07/25 01:23 Admit Provider: Jeff Quiros Attending Provider: Jeff Quiros Primary Care Provider: Rosi Alcala Hospital Course Hospital Course: 84 yo M with history of anklosing spondylitis with chronic pain on tramadol, gabapentin, and celecoxib as well as BPH who presented after an episode of slurring of speech and right facial droop lasting 20 minutes and was admitted for a TIA evaluation. His neurologic examination was normal at the time of presentation to the emergency room. CTA head/neck was negative. He was observed and did not have a recurrence of his symptoms. Echocardiogram did not show cardiac abnormalities or clots. 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 He was given aspirin 325mg and clopidogrel 300mg and atorvastatin 40mg after discussion of the evidence of cerebrovascular disease and new TIA. He was discharged with 21 days of DAPT for high risk TIA with ABCD2 score of 5. Risk of ZARATE-2 inhibitor also considered, but this is likely minimal given the low dose. He did have a lot of anxiety and required 0.5mg of lorazepam for his MRI. He requested discharge, and was sent home with 30 day leasing director to follow up with his PCP at the [facility]. He was upset in the morning because he was initially only given 50mg of tramadol instead of 100mg, but he was given his home dose after this was clarified. We did discuss the risk of a relatively high dose of tramadol at his age. His admission QTc was reassuring at 435. He did not have evidence of seizure activity. He was evaluated by PT who recommended home health PT, nursing also recommended for education/monitoring of cerebrovascular disease. PCP follow up: Follow up appointment within 1-2 weeks Follow lipids levels and tolarance of statin therapy Follow blood pressure with goal <130/80 given cerebrovascular disease. Follow up 30 day leasing director Follow risk benefit of his pain medications. Home Meds and New Rx's Prescriptions: New aspirin 81 mg tablet,delayed release (DR/EC) 81 mg PO DAILY Qty: 90 4RF clopidogrel 75 mg tablet 75 mg PO DAILY 20 Days Qty: 20 0RF atorvastatin 40 mg tablet 40 mg PO QHS Qty: 90 3RF Continued tramadol 50 MG tablet 50 mg PO TID gabapentin [Neurontin] 300 MG capsule 300 mg PO TID tamsulosin [Flomax] 0.4 mg capsule 0.4 mg PO DAILY celecoxib [Celebrex] 100 mg capsule 100 mg PO DAILY Discharge Instructions Instructions: Transient ischemic attack Additional Instructions: You experienced what we call a TIA or transient ischemic attack. This puts you at higher risk for a full stroke. Your MRI did show you had a small stroke in the past at some point. You should take aspirin and atorvastatin from now on to prevent more strokes. You should take clopidogrel for 20 more days for stroke prevention as well. Stand Alone Forms: Nursing Discharge Form Activity:: Activity as Tolerated Equipment/Supplies:: No Equipment Needed Diet:: As Tolerated Discharge Orders Discharge Orders: Discharge Order (Routine); Ordered 02/07/25 Ordered By: Niles Kumar Other Ambulatory Orders: Cardiac Event Recorder (Routine) Timeframe: 1 Month Facility: [facility] - Location: Respiratory Therapy Ordered By: Niles Kumar DS: Summary Time Spent with Patient providing and/or coordinating discharge services: Greater than 30 minutes Status at Discharge Functional status at discharge: uses cane/walker Overall status at discharge: patient is back to baseline Mental Status: mental status grossly normal Speech and Movement: speech and movement normal Mood: congruent mood Affect: normal affect Quality:SDOH Health Related Social Needs: No Data to Display Exam Narrative Exam Narrative: HEENT: NCAT MMM EOMI PERRLA CV: RRR NO MRG LUNGS: CTAB NO AMU ABD: SNTNDBSA NEURO: CN 2-12 INTACT, no pronator drift, symmetric strength/sensation, DTRs, normal speech and coordination. no tremor. CON: 84 Y/O MAN IN NO DISTRESS APPEARS STATED AGE, oriented to place and self, conversant. Psych Mental Status: mental status grossly normal Speech and Movement: speech and movement normal Mood: congruent mood Affect: normal affect DS: Data Vitals/I&O Vitals and I&O: Vital Signs Temperature 36.5 C 02/07/25 11:40 Temperature Source Temporal Artery Scan 02/07/25 11:40 Pulse 75 02/07/25 11:40 Pulse Rhythm Regular 02/07/25 03:02 Pulse 68 02/07/25 00:30 Respiratory Rate 18 02/07/25 11:40 Respiratory Effort Normal 02/07/25 03:02 Respiratory Depth Normal 02/07/25 03:02 Respiratory Pattern Normal 02/07/25 03:02 Blood Pressure 139/89 02/07/25 11:40 Blood Pressure Mean 112 02/07/25 01:31 Pulse Oximetry 98 02/07/25 11:40 Oxygen Delivery Method Room Air 02/07/25 11:40 Oxygen Flow Rate 0 02/07/25 11:40 Pain Level 7 02/07/25 15:24 Intake & Output 02/06/25 02/07/25 02/07/25 23:59 11:59 23:59 Intake Total Balance Weight 89.4 kg Intake: IV Other: Comment unmeasured, no hat in the toilet at this time. Data Completed and Pending Labs on day of discharge: Labs from last 24 hours 02/07/25 02/07/25 02/07/25 05:35 02:07 00:02 WBC Pending RBC Pending Hgb Pending Hct Pending MCV Pending MCH Pending MCHC Pending RDW Pending Plt Count Pending MPV Pending Immature Gran % Pending Neutrophils % Pending Lymphocytes % Pending Monocytes % Pending Eosinophils % Pending Basophils % Pending Nucleated RBC % Absolute Neutrophils Pending Absolute Lymphocytes Pending Absolute Monocytes Pending Absolute Eosinophils Pending Absolute Basophils Pending Sodium Pending Potassium Pending Chloride Pending Carbon Dioxide Pending Anion Gap Pending BUN Pending Creatinine Pending Est GFR (CKD-EPI 2020) Pending Glucose Pending Calcium Pending Magnesium Total Bilirubin Pending AST Pending ALT Pending Alkaline Phosphatase Pending Troponin I Cancelled 8 Total Protein Pending Albumin Pending 02/06/25 23:05 WBC 8.28 RBC 4.76 Hgb 14.3 Hct 43.9 MCV 92 MCH 30.0 MCHC 32.6 RDW 12.5 Plt Count 235 MPV 9.7 Immature Gran % 0.4 Neutrophils % 73.6 Lymphocytes % 17.4 Monocytes % 7.1 Eosinophils % 0.8 Basophils % 0.7 Nucleated RBC % 0.0 Absolute Neutrophils 6.09 Absolute Lymphocytes 1.44 Absolute Monocytes 0.59 Absolute Eosinophils 0.07 Absolute Basophils 0.06 Sodium 139 Potassium 4.0 Chloride 104 Carbon Dioxide 28.7 Anion Gap 6.3 BUN 23 H Creatinine 1.4 H Est GFR (CKD-EPI 2020) 50.18 Glucose 123 H Calcium 9.7 Magnesium 2.1 Total Bilirubin 0.8 AST 22 ALT 23 Alkaline Phosphatase 60 Troponin I 9 Total Protein 7.3 Albumin 3.6 PFSH All Active Problems (Updated 02/07/25 @ 15:47 by Niles Kumar) Urinary retention (Acute) TIA (transient ischemic attack) (Acute) Medical History (Updated 02/07/25 @ 15:47 by Niles Kumar) CVA (cerebrovascular accident) Social History Smoking/Tobacco Use Status: Never Smoking risk assessment performed?: Yes Alcohol Intake: never Drug use: Never Housing: house Do you feel safe in your relationship?: Yes Time Spent with Patient Time Spent with Patient: <45 minutes Time was spent: preparing to see the patient(eg.review tests), obtaining and/or reviewing separately otained hiistory, ordering medications,tests, procedures, referring, communicating with other health school childcare attendant, indepentently interpreting results, counseling the patient and care coordination
--- NOTE | 2025-02-07 16:02 | PDOC.CMDIS ---
Date of service: 02/07/25 Time of Service: 16:02 LACE Index Scoring Tool Questions: Length of Stay (in days): 1 Was the patient admitted via the E.D.?: Yes E.D. Visits: 2 Answers: Total Score: 6 Risk of Readmission: Low Risk Care Management Discharge Plan Reason for Hospitalization: TIA Discharge Plan: Discharge home with New [facility]TE RN/PT via private vehicle with family. Follow up with community/[facility] providers and discharge plan of care as directed. Patient/Family Education Needs: Review discharge instructions and plan to follow up as an outpatient. Discuss ask me three. Services Needed at Discharge: Home Health Care Services (New [facility]NA[facility] RN/PT) SDOH Health Related Social Needs: No Data to Display
== END 2025-02-07 16:16 | disposition home or self-care (01) ==
LOC: ER 02-07 01:53 → MS 02-07 02:21
PROVIDERS: Admitting Provider Hospitalist; Emergency Provider Emergency Medicine Emergency Medical Services; PCP Physician Assistant; Visit Provider Hospitalist
DX: G45.9 Transient cerebral ischemic attack, unspecified (principal); R33.9 Retention of urine, unspecified; M45.9 Ankylosing spondylitis of unspecified sites in spine; G89.29 Other chronic pain; Z79.899 Other long term (current) drug therapy; Z86.73 Personal history of transient ischemic attack (TIA), and cerebral infarction without residual deficits; R73.9 Hyperglycemia, unspecified; F41.9 Anxiety disorder, unspecified
CPT/HCPCS: 00123; 36415; 36416; 70496; 70498; 80053; 82962; 93005; 96372; 96374; 97162; 99285; J1650; 70551; 83735; 84484; 85025; 93010; 93306; 99236; G0378; J2060; J3490

== ENCOUNTER 2025-03-27 17:18 | Emergency (ER) | payer OTHER, SELFPAY ==
[2025-03-27] VITALS (55 sets, daily range): BP systolic 60–246; BP diastolic 35–116; PULSE 52–99; RESP 12–24; TEMP 36.9; O2SAT 95–99
--- NOTE | 2025-03-27 17:15 | DI.CT_ITS ---
Exam(s) CT HEAD WO EXAM: CT HEAD WO CLINICAL HISTORY: AMS stroke. TECHNIQUE: Imaging Protocol: Axial computed tomography images with coronal and sagittal reformatted images were created and reviewed COMPARISON: CT CT BRAIN NECK CTA from 02/06/2025 MR MR BRAIN WO from 02/07/2025 FINDINGS: The examination is limited due to patient motion artifact. Ventricles and Extra axial spaces: Normal in size and morphology for the patient's age. Hemorrhage: None. Cerebral parenchyma: There is again seen an old lacunar infarct in the left pink radiata. Within t he limits of the examination, no mass effect is identified. Midline shift: None. Brainstem/Cerebellum: Normal. Calvarium: Normal. Visualized Paranasal sinuses/Mastoids: Clear. Soft Tissues: Unremarkable. IMPRESSION: 1. The examination is severely limited due to significant patient motion artifact. 2. Within the limits of the examination no acute abnormalities identified. 3. If there is continued clinical concern, a repeat examination may be obtained. RADIATION DOSE DELIVERED: 1,009.42mGy.cm Total DLP DATA REPOSITORY: All CT scans at this facility are submitted to the National Radiology Data Registry (NRDR) Dose Index Registry (DIR) with the [employer] (A[employer]). RADIATION OPTIMIZATION: All CT scans at this facility use at least one of these dose optimization te chniques: automated exposure control; mA and/or kV adjustment per patient size (includes targeted exa ms where dose is matched to clinical indication); or iterative reconstruction.
--- NOTE | 2025-03-27 17:15 | RT.EKG_ITS ---
APPROVED REPORT Exam: Resting ECG Reason for Exam: AMS Patient Location: E HR:93 bpm ECG Measurements Heart Rate 93 AXIS OK 143 P 68 QRSd 95 QRS 0 QT 362 T 88 QTc 451 Conclusion Sinus rhythm...normal P axis, V-rate 60- 99 Supraventricular bigeminy...bigeminy string>4 w/ SV complexes No Occlusion LA
--- NOTE | 2025-03-27 17:16 | ED.GENADUL_ITS ---
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 HPI Narrative: MDM This is an unwell appearing normothermic and not tachycardic 84-year-old male with acute encephalopathy secondary to CVA versus electrolyte abnormalities versus seizure for which patient will undergo CT angiogram of his head and neck. Will load with levetiracetam at 2 g. Will obtain ECG to assess for ACS. Chest x-ray to assess for any acute cardiopulmonary process. Patient is protecting his airway and handling his secretions at the moment so no indication for intubation. No fevers no nuchal rigidity to suggest meningitis so no indication for lumbar puncture. Blood cultures sent. Cover empirically for sepsis with cefepime and vancomycin. If CT angiogram is unremarkable anticipate patient will require hospitalization for MRI as patient recently had a TIA earlier this year. Will reassess following imaging. 7:15 PM Patient had persistent rhythmic twitching in his right upper and lower extremity concerning for possibility of seizure. He was also thrashing intermittently with his right upper & lower. Given limited CT scan with significant motion artifact I intubated patient to facilitate imaging. His comprehensive metabolic panel was notable for CKD no CHRIST. Mild hyperglycemia mild anion gap normal bicarbonate?test not consistent DKA. Mild hypercalcemia which will likely improve with IV fluids. Mildly elevated LFTs. Reassuring salicylate and CK. Reassuring normal acetaminophen. Normal magnesium. TSH within normal limits. Patient has 2 18-gauge IVs. I spoke with Dr. Walker from neurology. She had met with the patient his and his daughter. She advised continued aspirin and clopidogrel load. She advised the patient was not a candidate for lytics given prior ischemic stroke within 3 months. MRI from January 2025 showed old left basal ganglia infarct. Post intubation sedation using propofol with norepinephrine drip for blood pressure augmentation. 9:41 PM I was in touch with Dr. Duron from [facility] who accepted the patient to the MICU. He requested OG tube atorvastatin. I have asked [facility] about possibility of flight transfer. No further twitching activity in the right side. No generalized tonic-clonic activity. 10:02 PM Urinalysis nitrate positive concerning for acute UTI. Patient has been covered with cefepime. I received an update from [facility]. They unfortunately do not have interventional radiology on at the moment. As result I reached out to [facility]. Will also reengage with teleneurology to discuss whether or not patient may be a candidate for lytics prior to thrombectomy given LVO. 10:10 PM I spoke with Dr. Mart from [facility]. He advised against lytics given patient is outside of window. 10:21 PM Patient was ultimately accepted to the emergency department at [facility] by Dr. Farris. I requested air transfer unfortunately [facility] was not flying. I was going to place a right arterial line however I did not want to delay transfer as staff registered nurse crew was ready to take the patient to [facility]. I updated the patient's and daughter at bedside multiple times. Given the patient fell from bed and was unable to participate history gathering patient he will require tertiary survey. HPI The patient presents for evaluation of a fall. He was discovered on the floor by his family after they heard a loud noise. He has been refusing food for the past 3 days and has exhibited a slight weakness, which is consistent with his baseline condition. His last known well state was within the past hour, as reported by his family. They had descended to the lower level, and shortly thereafter, they heard a loud noise. His arm has remained rigid throughout this period, and his leg exhibits sudden upward movements. He has not risen from his bed today due to feeling unwell. He occasionally gets up to use the bathroom and self-insert a catheter. He has been experiencing discomfort for the past few days and has shown little interest in eating. Despite attempts to encourage him to eat, he lacks appetite. He has not experienced any fevers or vomiting. He also reports bladder discomfort when it is full. His family reports that he typically performs his activities of daily living independently. The most responsive action observed from him was eye contact. He has not adhered to any commands or responded verbally. 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 No history of seizures. Exam General: Altered. Protecting airway. Head: Normocephalic, atraumatic. Eye:Pupils equal, round reactive to light. Roving extraocular eye movements. No conjunctival injection. No scleral icterus. Ear, nose, mouth, throat: Grossly normal inspection. Handling secretions Neck: Trachea midline. No nuchal rigidity. Cardiovascular: Well-perfused distal extremities. Rapid regular rate Respiratory: Nonlabored respiration. Clear lungs bilaterally. Back: Deferred due to patient agitation. Gastrointestinal: Nondistended abdomen. Soft nontender abdomen. Musculoskeletal: Moving all 4 extremities spontaneously. Skin: Normal for age and race, grossly normal temperature and turgor. No acute rash. Neurologic GCS 9: E4, V1, M4. Patient is globally aphasic. Patient does not participate in neurological evaluation. Intermittent rhythmic twitching right side lower greater than upper. Occasionally history on right side of body with patient's and daughter assisting to hold the patient down. Related Data Home Medications ?Medication ?Instructions ?Recorded ?Confirmed gabapentin 300 mg capsule 300 mg PO TID 06/30/17 03/27/25 (Neurontin) tramadol 50 mg tablet 50 mg PO TID 06/30/17 03/27/25 celecoxib 100 mg capsule (Celebrex) 100 mg PO DAILY 11/27/24 03/27/25 tamsulosin 0.4 mg capsule (Flomax) 0.4 mg PO DAILY 02/06/25 03/27/25 aspirin 81 mg tablet,delayed 81 mg PO DAILY #90 tabs 02/07/25 03/27/25 release atorvastatin 40 mg tablet 40 mg PO QHS #90 tabs 02/07/25 03/27/25 Previous Rx's ?Medication ?Instructions ?Recorded aspirin 81 mg tablet,delayed 81 mg PO DAILY #90 tabs 02/07/25 release atorvastatin 40 mg tablet 40 mg PO QHS #90 tabs 02/07/25 Allergies Allergy/AdvReac Type Severity Reaction Status Date / Time No Known Allergies Allergy Verified 06/09/25 21:47 General ELADIA: 2 Procedure Airway Management Date of Procedure: 03/27/25 Time of Procedure: 18:57 Patient Consented: Verbally (Patient's ) Indication: Reduced level of consciousness Provider that performed the procedure: Niles Phillip Induction setup: Pt. evaluated prior to induction, Apneic Oxygenation and Ear to Sternal Notch Paralytic(indicate dose given): Succinylcholine Post Induction Medication Management(indicate dose given): Propofol IV Gastric Tube: Placed by Other Person Procedure Complications: None Procedure Outcome: Successful Procedure Description Note: Patient intubated using glide scope #4 single first pass success. Laryngoscopy Date of Procedure: 03/27/25 Time of procedure: 18:57 Provider that performed the procedure: Niles Phillip Indication: AMS Standard Time Out Performed: Yes Patient Consented: Verbally (Patient's ) Pre-procedure medication: Midazolam Amount of pre-procedure medication(mg): 6 Technique: video laryngoscope (GlideScope 4) Findings: normal larynx and normal epiglottis Procedure Description/Note: Patient tolerated intubation well with succinylcholine and propofol. 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
[2025-03-27] MEDS: Omnipaque 350 MG/ML 100 ML BTL IJ ×2 (17:22→20:07)
[2025-03-27] MEDS: Midazolam 2 MG/2 ML VIAL IM (17:40)
[2025-03-27] MEDS: Normal Saline 500 ML 1000 ML IV ×2 (17:50→18:15)
[2025-03-27 18:03] LABS: Abs Immature Grans 0.09 10^3/uL (0.0-0.06); Absolute Basophil Count 0.14 10^3/uL (0.0-0.2); Absolute Eosinophil Count 0.06 10^3/uL (0.0-0.7); Basophils % 1.2 %; Eosinophils % 0.5 %; HCT 45.5 % (40.0-50.0); HGB 15.2 g/dL (13.5-17.5); Immature Grans % 0.8 %; Lymphocytes % 20.3 %; MCH 29.5 pg (27.0-33.0); MCHC 33.4 % (32.0-36.0); MCV 88 fL (80-95); MPV 9.5 fL (8.0-11.0); Monocytes % 10.8 %; Neutrophils % 66.4 %; Platelet Count 408 10^3/uL (130-400); RBC 5.15 10^6/uL (4.36-5.78); RDW 12.7 % (11.8-14.1); RDW-SD 41.1 fL; WBC 11.81 10^3/uL (4.4-10.8)
[2025-03-27 18:13] LABS: Absolute Monocyte Count 1.28 10^3/uL (0.1-0.8); Absolute Neutrophil Count 7.84 10^3/uL (1.2-6.7)
[2025-03-27] MEDS: Midazolam 2 MG/2 ML VIAL IVP (18:13)
[2025-03-27] MEDS: levETIRAcetam 2,000 MG in Normal Saline 100 ML 400 MG IVPB (18:20)
[2025-03-27] MEDS: Midazolam 2 MG/2 ML VIAL 3 MG IVP (18:34)
[2025-03-27 18:36] LABS: ALT 81 U/L (16-63); AST 44 U/L (15-37); Albumin 3.5 g/dL (3.4-5.0); Alkaline Phosphatase 90 U/L (46-116); Anion Gap 14.3 mmol/L (3-11); BUN 39 mg/dL (7-18); Bilirubin, Total 0.7 mg/dL (0.2-1.0); CO2 23.7 mmol/L (21.0-32.0); CREATININE 1.5 mg/dL (0.70-1.30); Calcium 10.3 mg/dL (8.5-10.1); Chloride 104 mmol/L (98-107); Creatine Kinase 69 U/L (39-308); Estimated GFR 46.19 (mL/min/1.73m2); Glucose 148 mg/dL (74-106); Magnesium 2.3 mg/dL (1.8-2.4); Potassium 4.5 mmol/L (3.5-5.1); Sodium 142 mmol/L (136-145); TSH (W/Ref FT4) 1.77 uIU/mL (0.36-3.74); Total Protein 8.6 g/dL (6.4-8.2); Troponin I 9 ng/L (<or=76)
[2025-03-27 18:46] LABS: Salicylate < 2.8 mg/dL (<2.8)
[2025-03-27] MEDS: Propofol 200 MG/20 ML VIAL 90 MG IVP (18:49)
[2025-03-27 18:50] LABS: Acetaminophen < 2 ug/mL (10-30)
[2025-03-27] MEDS: Succinylcholine 100 MG/5 ML SYR 130 MG IVP (18:50)
[2025-03-27] MEDS: PROPOFOL 1,000 MG/100 ML BTL 1000 MG (19:06)
[2025-03-27] MEDS: Norepinephrine in D5W 8 MG/250 ML BAG 5 MG IV (19:25)
--- NOTE | 2025-03-27 19:32 | DI.RAD_ITS ---
Exam(s) XR PORTABLE CHEST AP EXAM: XR PORTABLE CHEST AP CLINICAL HISTORY: Confirm ET tube. TECHNIQUE: 2D digital imaging was performed. COMPARISON: No exams were available for comparison FINDINGS: Single AP portable view. Distal tip of the endotracheal tube is in good position above the arjun. There is an NG tube in the stomach. Heart size is upper normal. The mediastinum is not widened. Lungs are clear. No infiltrates nor obvious pleural effusions. No obvious fractures. No pneumothorax. IMPRESSION: No acute pulmonary findings on this single AP portable view of the chest. ETT is in satisfactory position. DATA REPOSITORY: RADIATION DOSE DELIVERED:
[2025-03-27] MEDS: HYDROmorphone 2 MG/ML SYR 1 MG IVP (19:35)
[2025-03-27] MEDS: Normal Saline - Diluent 50 ML VIAL IJ (20:12)
[2025-03-27 20:13] LABS: ETHANOL BLOOD < 3.0 mg/dL (<10)
--- NOTE | 2025-03-27 20:14 | DI.VRAD_ITS ---
PROCEDURE INFORMATION: Exam: XR Chest Exam date and time: 03/27/2025 7:27 PM Age: 84 years old Clinical indication: Device placement; Other: Confirm et tube TECHNIQUE: Imaging protocol: Radiologic exam of the chest. Views: 1 view. COMPARISON: CT BRAIN NECK CTA 02/06/2025 11:27 PM FINDINGS: Tubes, catheters and devices: Endotracheal tube tip approximately 3.5 cm above the arjun. Enteric tube tip within the gastric fundus lumen. Lungs: No focal consolidations or pulmonary edema. Pleural spaces: Normal. Heart/Mediastinum: Normal. Vasculature: Atherosclerotic vascular disease. Bones/joints: Multilevel thoracic spine degenerative disc space narrowing and osteophyte formation. IMPRESSION: 1. No acute cardiopulmonary abnormality. 2. Endotracheal tube tip 3.5 cm above the arjun. Dictated and Authenticated by: Rony Rutledge MD. Orderin Kenji Cage MD
--- NOTE | 2025-03-27 20:27 | DI.CT_ITS ---
Exam(s) CT BRAIN NECK CTA EXAM: CT BRAIN NECK CTA CLINICAL HISTORY: Acute encephalopathy. TECHNIQUE: Imaging Protocol: Axial CT angiography was performed with multi-slice acquisition and mu lti-planar and/or 3D reconstructions. CONTRAST MATERIAL: Intravenous: Omnipaque 350 Contrast volume:structured data in ml COMPARISON: MR MR BRAIN WO from 02/07/[address] HEAD WO from 03/27/2025 FINDINGS: CTA Neck W: Aortic arch anatomy: There is significant atherosclerotic disease in the thoracic aortic arch. There is some calcified plaque at the origin of the brachiocephalic artery but without tight stenosis. No significant stenosis at the origin the left common carotid artery. Some plaque is noted in the medi al wall of the left subclavian artery starting 1.4 cm above its origin but without critical stenosis. Not enough stenosis to be causing subclavian steal syndrome. No intimal flap evident. Anterior circulation: Both common carotid arteries ascend with normal luminal diameters. At the level the carotid bulbs and proximal internal carotid arteries there is significant plaque bot h calcified and noncalcified. On the right side the plaque at this level is predominately calcified ill amount of luminal stenosis is approximately 20 percent. Above this level the right ICA in the upper neck is patent. On the lef t side there is both calcified and soft plaque involving the carotid bulb and proximal cm of the left ICA. Plaque is complex and ulcerated and there is approximately 80 percent stenosis of the lumen. Above this level the left ICA in the upper neck is patent as well as in the skull base-carotid canal. Posterior circulation: Both vertebral arteries originate in conventional fashion off of the subclavian arteries and there is no obvious stenosis at the origin of the vertebral arteries. Both vertebral arteries exhibit normal luminal diameters within the foramen transversarium. Both vertebral arteries contribute to the formation of the basilar artery at the skull base. CTA Brain W: Anterior circulation: Both internal carotid arteries are patent in the skull base-carotid canals as well as within the cave rnous sinuses. The supraclinoid aspects of the ICAs are patent. Both A1 segments are patent as are the anterior cer ebral arteries and there is no evidence of aneurysm at the level of the anterior communicating artery . Right middle cerebral artery is patent. The left middle cerebral artery is occluded 1.3 cm distal to its origin. Posterior circulation: The basilar artery ascends in the midline. Distally it gives off patent bilateral superior cerebella r arteries. Above this level the basilar artery terminates as the patent left posterior cerebral artery. The rig ht posterior cerebral artery is fed by posterior communicating artery on the right side of the [place]. There is no evidence of aneurysm at the tip of the basilar artery nor elsewhere in the owvrfc-ga-Rjuh is. CT BRAIN: There is no evidence of intracranial hemorrhage, mass effect, or shift of midline structures. There are no extra-axial fluid collections. Ventricles are not enlarged or shifted. Nonhemorrhagic lacuna r infarct again noted in the lateral left basal ganglia. No new territorial infarction. There are n o ring enhancing lesions in the brain and no abnormal meningeal enhancement. Patient is intubated. IMPRESSION: 1. There is complex hard and soft plaque at both carotid bulbs and proximal internal carotid arteries . This is more prominent on the left side where there is also rated plaque and approximately 80 perc ent stenosis in the proximal left ICA. 2. Patent vertebral arteries. 3. In the intracranial compartment there is occlusion of the left middle cerebral artery 1.5 cm dist al to its origin. Other intracranial arteries are patent. 4. Nonacute appearing left basilar ganglia lacunar infarct. 5. Recommend follow-up MRI. Findings discussed by phone with ER physician 03/27/2025 at 920 p.m.. Report had already been sent b y [facility] RADIATION DOSE DELIVERED: 2,165.56mGy.cm Total DLP DATA REPOSITORY: All CT scans at this facility are submitted to the National Radiology Data Registry (NRDR) Dose Index Registry (DIR) with the [employer] (ACR). RADIATION OPTIMIZATION: All CT scans at this facility use at least one of these dose optimization te chniques: automated exposure control; mA and/or kV adjustment per patient size (includes targeted exa ms where dose is matched to clinical indication); or iterative reconstruction.
[2025-03-27 20:41] LABS: BE -6 mmol/L (-2-3); HCO3 20 mmol/L (22-26); pCO2 41 mmHg (35-45); pO2 95 mmHg (80-105); sO2 97 % (95-98); tCO2 19 mmol/L (23-27)
[2025-03-27 20:43] LABS: FIO2 25 %; Site Right Brachial
--- NOTE | 2025-03-27 20:46 | RESPIRATORY ---
Pt intubated w/out complication after being pre-oxygenated w/ nrb. ETT secured and xray confirmed placement. RT at bedside while RN worked to sedate pt for ct scan and comfort. Pt was brought to ct scan and returned to ER room w/out even. ABG drawn after pt settled approximately 10 min. post transporting. ABG results unremarkable, pt breathing at rr 14, will increase set rate to match what pt is achieving. No other changes made at this time.
[2025-03-27] MEDS: Normal Saline 100 ML (20:50)
[2025-03-27] MEDS: CEFEPIME 2 GM in Normal Saline 100 ML IVPB (20:50)
[2025-03-27] MEDS: PROPOFOL 1,000 MG/100 ML BTL 54 MG IV ×2 (20:51→22:47)
--- NOTE | 2025-03-27 21:05 | DI.VRAD_ITS ---
Addendum created by Rony Rutledge MD on 03/27/2025 9:30:26 PM EDT: THIS REPORT CONTAINS FINDINGS THAT MAY BE CRITICAL TO PATIENT CARE. As of 9:30 PM EDT on 03/27/2025, Jean Marie Ward confirmed that KELSEA FONTAINE has received the exam report, is aware of the critical findings, and indicated no conference call was necessary to discuss the exam findings. Initial report created on 03/27/2025 9:04:50 PM EDT: PROCEDURE INFORMATION: Exam: CTA Head Without And With Contrast, Arteriography Exam date and time: 03/27/2025 7:57 PM Age: 84 years old Clinical indication: Other: Acute encephalopathy TECHNIQUE: Imaging protocol: Computed tomographic angiography of the head without and with contrast. Exam focused on the arteries. 3D rendering (Not supervised by radiologist): MIP and/or 3D reconstructed images were created by the technologist. Contrast material: OMNIPAQUE 350; Contrast volume: 70 ml; Contrast route: INTRAVENOUS (IV); COMPARISON: CT head dated 03/27/[address] BRAIN NECK CTA 02/06/2025 11:27 PM FINDINGS: ANTERIOR CIRCULATION: Right internal carotid artery: Intracranial segment is patent with no significant stenosis or occlusion. No aneurysm. Right middle cerebral artery: No occlusion or significant stenosis. No aneurysm. Right anterior cerebral artery: No occlusion or significant stenosis. No aneurysm. Left internal carotid artery: Intracranial segment is patent with no significant stenosis. No aneurysm. Left middle cerebral artery: Abrupt occlusion of the left MCA M2 segment (series 9, image 152). Left anterior cerebral artery: No occlusion or significant stenosis. No aneurysm. POSTERIOR CIRCULATION: Right vertebral artery: No occlusion or significant stenosis. No aneurysm. Left vertebral artery: No occlusion or significant stenosis. No aneurysm. Basilar artery: No occlusion or significant stenosis. No aneurysm. Right posterior cerebral artery: No occlusion or significant stenosis. No aneurysm. Left posterior cerebral artery: No occlusion or significant stenosis. No aneurysm. HEAD: Brain: There is parenchymal atrophy. Periventricular and subcortical white matter areas of hypoattenuation, likely chronic small vessel ischemic change, demyelination, or gliosis. No intracranial mass or acute hemorrhage. Cerebral ventricles: Normal. No ventriculomegaly. Bones: Unremarkable. No acute fracture. Paranasal sinuses: Visualized sinuses are normal. No fluid levels. Mastoid air cells: Visualized mastoids are normal. No mastoid effusion. Soft tissues: Unremarkable. IMPRESSION: Abrupt occlusion of the left MCA M2 segment (series 9, image 152), new from comparison study. PROCEDURE INFORMATION: Exam: CTA Neck Without And With Contrast Exam date and time: 03/27/2025 7:57 PM Age: 84 years old Clinical indication: Other: Acute encephalopathy TECHNIQUE: Imaging protocol: Computed tomographic angiography of the neck without and with contrast. Exam focused on the cervical segments of the vasculature. 3D rendering (Not supervised by radiologist): MIP and/or 3D reconstructed images were created by the technologist. Contrast material: OMNIPAQUE 350; Contrast volume: 70 ml; Contrast route: INTRAVENOUS (IV); COMPARISON: CT BRAIN NECK CTA 02/06/2025 11:27 PM FINDINGS: Tubes, catheters and devices: Endotracheal tube tip in the lower thoracic trachea. Partially visualized enteric tube. Right common carotid artery: Mixed atherosclerotic plaque within the distal right common carotid artery, causing approximately 30% luminal narrowing. Right internal carotid artery: Mixed atherosclerotic plaque within the proximal right ICA, causing approximately 30% luminal narrowing. Right external carotid artery: No occlusion or stenosis of the origin. Left common carotid artery: No stenosis. No dissection or occlusion. Left internal carotid artery: Mixed atherosclerotic plaque within the proximal left ICA, causing greater than 95% luminal narrowing (series 9, image 100). Left external carotid artery: No occlusion or stenosis of the origin. Right vertebral artery: No stenosis. No dissection or occlusion. Left vertebral artery: No stenosis. No dissection or occlusion. Left subclavian artery: Mixed atherosclerotic plaque within the proximal left subclavian artery, causing approximately 40% luminal narrowing. Aorta: Atherosclerotic disease of the thoracic aorta, without aneurysm or dissection. Soft tissues: Normal. No significant soft tissue swelling. Bones/joints: No acute fracture. Other findings: Conventional thoracic aortic arch great vessel branch anatomy. IMPRESSION: Mixed atherosclerotic plaque within the proximal left ICA, causing greater than 95% luminal narrowing (series 9, image 100). REFERENCES: NASCET CRITERIA. The degree of stenosis in the cervical segment of the internal carotid artery is based on NASCET criteria. Normal is no stenosis. Mild is less than 50% stenosis. Moderate is 50-69% stenosis. Severe is 70% to 99% stenosis. Total occlusion is no detectable patent lumen. Dictated and Authenticated by: Rony Rutledge MD. Orderin Kenji Cage MD
[2025-03-27 21:06] LABS: Lactate 1.3 mmol/L (<or=2.0)
[2025-03-27] MEDS: Vancomycin 1,000 MG VIAL 1000 MG (21:19)
[2025-03-27] MEDS: Normal Saline 1,000 ML 1000 ML IV (21:29)
[2025-03-27 21:31] LABS: Troponin I 19 ng/L (<or=76)
[2025-03-27 21:40] LABS: Bilirubin Negative (Negative); Blood Large (Negative); Clarity Sl Cloudy (Clear); Glucose Negative (Negative); Ketones Trace mg/dL (Negative); Leukocyte Esterase Moderate (Negative); Nitrite Positive (Negative); Specific Gravity 1.015 (1.005-1.025); pH 5.5 (5-8)
--- NOTE | 2025-03-27 21:45 | RT.EKG_ITS ---
APPROVED REPORT Exam: Resting ECG Reason for Exam: arrythmia Patient Location: E HR:65 bpm ECG Measurements Heart Rate 65 AXIS PA 167 P 78 QRSd 99 QRS 1 QT 466 T 62 QTc 485 Conclusion Sinus rhythm...normal P axis, V-rate 60- 99 Atrial premature complexes...SV complexes w/ short R-R intvls No Occlusion FL
[2025-03-27 21:56] LABS: C & S Indicated? Yes; WBC >50 HPF (0-5)
[2025-03-27] MEDS: Atorvastatin 40 MG TAB PO (22:13)
[2025-03-27] MEDS: Clopidogrel 300 MG TAB PO (22:14)
[2025-03-27 22:46] LABS: COVID-19 PCR Negative (Negative); Influenza A PCR Negative (Negative); Influenza B PCR Negative (Negative); RSV PCR Negative (Negative)
--- NOTE | 2025-03-27 22:48 | NUR.NOTE ---
Patient presented to the ED after suspecting of a stroke. Patient has been unresponsive and but moving his left arm but not his right. Also moving his right leg but minimal movements from his left. Patient was intubated by Providers, RT present. Patient taken to CT scan with this nursing and RT. Patient has bilateral 18g IVs. Patient currently on norephinephrine 12mcg and propofol 100mg, Schultz catheter insitu with minimal dark zelda urine.Patient and daughter present in the room. Patient is for transfer to [facility] for higher level of care.
[2025-03-27 22:56] LABS: Source Nasopharynx
--- NOTE | 2025-03-27 23:41 | RESPIRATORY ---
2340 Called to ER to discontinue etco2 on vent for transport. [facility] team at bedside.
== END 2025-03-27 23:59 | disposition short-term general hospital (02) ==
PROVIDERS: Emergency Provider Emergency Medicine; PCP Physician Assistant
DX: I63.542 Cerebral infarction due to unspecified occlusion or stenosis of left cerebellar artery (principal); G93.49 Other encephalopathy; R29.725 NIHSS score 25; Z79.82 Long term (current) use of aspirin
CPT/HCPCS: 31500; 70496; 70498; 80053; 82550; 82805; 87040; 87077; 87637; 93005; 96361; 96365; 96367; 96375; 99291; 36600; 70450; 71045; 80320; 80329; 81003; 81015; 83605; 83735; 84443; 84484; 85025; 87086; 87186; 93010; 94002; 94760; J0330; J0692; J1171; J1953; J2250; J2704; J3370; J3490